=== PATIENT | female | born 1975 | race African-American/Black ===

== ENCOUNTER 2017-01-13 15:48 | Emergency (ER) | payer SELFPAY ==
[~2017-01-13] VITALS: Ht 160 cm; Wt 79.4 kg
[2017-01-13] MEDS ORDERED: LORazepam 1 MG TABLET PO STA (16:08)
[2017-01-13 16:21] LABS: BASO % 0 % (0-3); EOS % 0 % (0-3); HEMATOCRIT 40.4 % (36.0-47.0); HEMOGLOBIN 13.4 g/dL (12.0-15.5); LYMPH # 1.4 x10^3/uL (1.0-4.8); LYMPH % 13 % (24-48); MEAN CORPUSCULAR HEMOGLOBIN 28 pg (25-35); MEAN CORPUSCULAR HGB CONC 33 g/dL (31-37); MEAN CORPUSCULAR VOLUME 83 fL (79-100); MONO % 6 % (0-9); NEUT % 81 % (31-73); PLATELET COUNT 298 x10^3/uL (140-400); RED BLOOD COUNT 4.87 x10^6/uL (3.50-5.40); RED CELL DISTRIBUTION WIDTH 14.4 % (11.5-14.5)
[2017-01-13 16:43] LABS: CALCIUM 9.1 mg/dL (8.5-10.1); CREATININE 1.1 mg/dL (0.6-1.0); GFR 66.2
[2017-01-13 16:48] LABS: ALBUMIN 3.4 g/dL (3.4-5.0); ALBUMIN/GLOBULIN RATIO 0.8 (1.0-1.7); TOTAL BILIRUBIN 0.4 mg/dL (0.2-1.0); TOTAL PROTEIN 7.8 g/dL (6.4-8.2)
[2017-01-13 17:01] LABS: BARBITURATES NEG (NEG); BENZODIAZEPINES NEG (NEG); CANNABINOIDS POS (NEG); COCAINE POS (NEG); METHADONE NEG (NEG); OPIATES NEG (NEG); PHENCYCLIDINE POS (NEG)
--- NOTE | 2017-01-13 17:49 | ED.ADGEN ---
Past Medical History Past Medical History: Anxiety, GERD, Hypertension Past Surgical History: Appendectomy, Tubal ligation Alcohol Use: None Drug Use: None Adult General Chief Complaint Chief Complaint: Neck Pain HPI HPI Patient is a 41 year old -Sud[place] male presents with posterior headache Or, upper neck pain for the past 3 hours. Patient denies history of trauma. States pain radiates from the low neck into her shoulder. Pain is worse with palpation, head movement and rotation. Patient denies chest pain, shortness of breath, blurred vision, dizziness, nausea, vomiting, extremity weakness or loss of sensation. No other symptoms or complaints. Of note, patient is mildly agitated, appears to be excessively anxious or on drugs. No other symptoms or complaints. Review of Systems Review of Systems ROS as per HPI Current Medications Current Medications Current Medications Medications (Trade) Dose Ordered Sig/Leila Start Time Stop Time Status Last Admin Dose Admin Lorazepam (Ativan) 2 mg 1X STAT 01/13/17 16:08 01/13/17 16:10 DC 01/13/17 16:22 2 MG Allergies Allergies Allergies Coded Allergies Type Severity Reaction Last Updated Verified Sulfa (Sulfonamide Antibiotics) Allergy Intermediate Hives 06/16/14 No Physical Exam Physical Exam Constitutional: Well developed, well nourished, anxious, tearful, mildly agitated. HENT: Normocephalic, atraumatic, bilateral external ears normal, oropharynx moist,nose normal. Eyes: PERRL. Neck: Normal range of motion, no midline tenderness, right paravertebral muscle pain, tenderness. Cardiovascular:Heart rate regular rhythm. Lungs & Thorax: Bilateral breath sounds clear to auscultation. Abdomen: Bowel sounds normal, soft, no tenderness, no masses, no pulsatile masses. Skin: Warm, dry, no erythema, no rash. Back: No tenderness, no CVA tenderness. Extremities: No tenderness, no cyanosis, no clubbing, ROM intact, no edema. Neurologic: Alert and oriented X 3, cranial nerves II through XII grossly intact , normal motor function, normal sensory function, no focal deficits noted. Current Patient Data Vital Signs Vital Signs Date Time Temp Pulse Resp B/P (MAP) Pulse Ox O2 Delivery O2 Flow Rate FiO2 01/13/17 19:43 77 118/66 (83) 01/13/17 16:22 97 Room Air 01/13/17 15:50 98.7 20 98.7 Lab Values Laboratory Tests Test 01/13/17 15:55 01/13/17 16:30 White Blood Count 11.0 x10^3/uL (4.0-11.0) Red Blood Count 4.87 x10^6/uL (3.50-5.40) Hemoglobin 13.4 g/dL (12.0-15.5) Hematocrit 40.4 % (36.0-47.0) Mean Corpuscular Volume 83 fL (79-100) Mean Corpuscular Hemoglobin 28 pg (25-35) Mean Corpuscular Hemoglobin Concent 33 g/dL (31-37) Red Cell Distribution Width 14.4 % (11.5-14.5) Platelet Count 298 x10^3/uL (140-400) Neutrophils (%) (Auto) 81 % (31-73) H Lymphocytes (%) (Auto) 13 % (24-48) L Monocytes (%) (Auto) 6 % (0-9) Eosinophils (%) (Auto) 0 % (0-3) Basophils (%) (Auto) 0 % (0-3) Neutrophils # (Auto) 8.9 x10^3uL (1.8-7.7) H Lymphocytes # (Auto) 1.4 x10^3/uL (1.0-4.8) Monocytes # (Auto) 0.7 x10^3/uL (0.0-1.1) Eosinophils # (Auto) 0.0 x10^3/uL (0.0-0.7) Basophils # (Auto) 0.0 x10^3/uL (0.0-0.2) Sodium Level 139 mmol/L (136-145) Potassium Level 4.0 mmol/L (3.5-5.1) Chloride Level 103 mmol/L (98-107) Carbon Dioxide Level 22 mmol/L (21-32) Anion Gap 14 (6-14) Blood Urea Nitrogen 14 mg/dL (7-20) Creatinine 1.1 mg/dL (0.6-1.0) H Estimated GFR (Cockcroft-Gault) 66.2 BUN/Creatinine Ratio 13 (6-20) Glucose Level 79 mg/dL (70-99) Calcium Level 9.1 mg/dL (8.5-10.1) Total Bilirubin 0.4 mg/dL (0.2-1.0) Aspartate Amino Transferase (AST) 15 U/L (15-37) Alanine Aminotransferase (ALT) 19 U/L (14-59) Alkaline Phosphatase 58 U/L (46-116) Troponin I Quantitative < 0.017 ng/mL (0.000-0.055) Total Protein 7.8 g/dL (6.4-8.2) Albumin 3.4 g/dL (3.4-5.0) Albumin/Globulin Ratio 0.8 (1.0-1.7) L Urine Opiates Screen Neg (NEG) Urine Methadone Screen Neg (NEG) Urine Barbiturates Neg (NEG) Urine Phencyclidine Screen Pos (NEG) Urine Amphetamine/Methamphetamine Neg (NEG) Urine Benzodiazepines Screen Neg (NEG) Urine Cocaine Screen Pos (NEG) Urine Cannabinoids Screen Pos (NEG) Urine Ethyl Alcohol Neg (NEG) Laboratory Tests 01/13/17 15:55 Laboratory Tests 01/13/17 15:55 EKG EKG [EKG: Normal sinus rhythm, rate 64, no acute ST-T wave changes, QTC of 433.] Radiology/Procedures Radiology/Procedures [] Course & Med Decision Making Course & Med Decision Making Pertinent Labs and Imaging studies reviewed. (See chart for details) [Headache, neck pain in the setting of cocaine, PCP and cannabis abuse. Patient given anxiety medication with improved symptoms in the ED. No focal neurologic deficits. CT head P. ] Dragon Disclaimer Dragon Disclaimer This electronic medical record was generated, in whole or in part, using a voice recognition dictation system. SOLITARIO KUMAR DO January 13, 2017 17:49
--- NOTE | 2017-01-13 19:27 | RAD ---
PROCEDURE CT head without contrast. HISTORY Headache. TECHNIQUE Noncontrast CT head was obtained. One or more of the following individualized dose reduction techniques were utilized for this exam: 1. Automated exposure control. 2. Adjustment of the mA and/or kV according to patient's size. 3. Use of iterative reconstruction technique. COMPARISON January 04, 2009. FINDINGS The ventricles and sulci are within normal limits for age. There is no acute intracranial hemorrhage or extra-axial fluid collection. There is no mass effect or midline shift. Mcgraw-white differentiation is maintained. Paranasal sinuses are clear. There is no depressed skull fracture. IMPRESSION No acute intracranial findings. Electronically signed by: Mehdi Estevez MD (January 13, 2017 18:57:15)
[2017-01-13 19:43] VITALS: BP 118/66
--- NOTE | 2017-01-14 14:55 | EKG ---
[facility] [address] [place] [address] Test Date: 2017-01-13 Test Time: 16:13:32 Pat Name: YADIEL CEJA Department: Room: Gender: F Surtass Analyst: : 1975 Requested By: SOLITARIO KUMAR Order Number: [id number] Reading MD: Fany Mark Measurements Intervals [place] Rate: 64 P: 40 CT: 150 QRS: -27 QRSD: 74 T: 21 QT: 416 QTc: 433 Interpretive Statements SINUS RHYTHM LEFTWARD AXIS NON SPECIFIC T ABNORMALITY RI6.01 Unconfirmed report No previous ECG available for comparison Electronically Signed On 01-15-2017 21:24:38 CDT by Fany Mark
== END 2017-01-13 20:01 | disposition home or self-care (01) ==
LOC: ER 17:48
DX: R51 Headache (principal); M54.2 Cervicalgia; K21.9 Gastro-esophageal reflux disease without esophagitis; I10 Essential (primary) hypertension; Z90.49 Acquired absence of other specified parts of digestive tract; Z98.51 Tubal ligation status; Z88.2 Allergy status to sulfonamides
CPT/HCPCS: 36415; 70450; 80053; 80305; 80320; 84484; 85027; 93005; G0481; 99285-25

== ENCOUNTER 2017-10-01 11:06 | Emergency (ER) | payer OTHER | END 2017-10-01 12:37 | disposition home or self-care (01) | LOC: ER 11:06 | DX: M51.37 Other intervertebral disc degeneration, lumbosacral region (principal); I10 Essential (primary) hypertension; K21.9 Gastro-esophageal reflux disease without esophagitis; Z98.51 Tubal ligation status; Z90.49 Acquired absence of other specified parts of digestive tract | CPT/HCPCS: 72100; 99284 ==

== ENCOUNTER 2019-10-08 15:04 | Emergency (ER) | payer SELFPAY ==
[~2019-10-08] VITALS: Ht 175.3 cm; Wt 70.0 kg
[~2019-10-08 15:04] MED LIST: CYCL5TAB PO; IBUP-1060 PO
[2019-10-08] MEDS: IPRATRPIUM/ALBUTEROL 0.5/2.5MG 3 ML NEBU. NEB ONE (16:47)
[2019-10-08 16:58] VITALS: BP 113/77
[2019-10-08] MEDS: predniSONE 10 MG TABLET PO ONE (17:04)
[2019-10-08] MEDS: BENZONATATE 100 MG CAPSULE. PO ONE (17:04)
--- NOTE | 2019-10-08 17:15 | RAD ---
PA and lateral chest. HISTORY: Cough PA and lateral views were taken of the chest. There is mild scoliosis. There is hypertrophic change in the spine. There is no effusion. There are no confluent infiltrates. Heart is normal in size. IMPRESSION: 1. No acute chest disease. Electronically signed by: Denton Ryder MD (10/08/2019 5:12 PM) [id number]
[2019-10-08 17:27] LABS: INFLUENZA A PATIENT NEGATIVE (NEGATIVE); INFLUENZA B PATIENT NEGATIVE (NEGATIVE)
[2019-10-08] MEDS ORDERED: PRED50TA PO (17:47)
[2019-10-08] MEDS ORDERED: ALBU2.5V8 IH (17:47)
[2019-10-08] MEDS ORDERED: BENZ100C PO (17:47)
--- NOTE | 2019-10-08 17:47 | PHYS DOC ---
Past Medical History Past Medical History: Anxiety, GERD, Hypertension Past Surgical History: Appendectomy, Tubal ligation Smoking Status: Never Smoker Alcohol Use: None Drug Use: None Adult General Chief Complaint Chief Complaint: COUGH HPI HPI Patient is a 44 year old female with previous history of smoking, current history of hypertension acid reflex and anxiety who presents to ED today complaining of a productive cough, subjective fevers and body aches for 3 days. Review of Systems Review of Systems Constitutional: Reports subjectively fever, body aches and chills [] Eyes: Denies change in visual acuity, redness, or eye pain [] HENT: Denies nasal congestion or sore throat [] Respiratory: Reports a cough, denies shortness of breath [] Cardiovascular: No additional information not addressed in HPI [] GI: Denies abdominal pain, nausea, vomiting, bloody stools or diarrhea [] : Denies dysuria or hematuria [] Musculoskeletal: Denies back pain or joint pain [] Integument: Denies rash or skin lesions [] Neurologic: Denies headache, focal weakness or sensory changes [] All other systems were reviewed and found to be within normal limits, except as documented in this note. Current Medications Current Medications Current Medications Medications (Trade) Dose Ordered Sig/Leila Start Time Stop Time Status Last Admin Dose Admin Albuterol/ Ipratropium (Duoneb) 3 ml 1X ONCE 10/08/19 16:45 10/08/19 16:46 DC 10/08/19 16:47 3 ML Benzonatate (Tessalon Perle) 100 mg 1X ONCE 10/08/19 16:45 10/08/19 16:46 DC 10/08/19 17:04 100 MG Prednisone (Prednisone) 50 mg 1X ONCE 10/08/19 16:45 10/08/19 16:46 DC 10/08/19 17:04 50 MG Allergies Allergies Allergies Coded Allergies Type Severity Reaction Last Updated Verified Sulfa (Sulfonamide Antibiotics) Allergy Intermediate Hives 06/16/14 No Physical Exam Physical Exam Constitutional: Well developed, well nourished, no acute distress, non-toxic appearance. [] HENT: Normocephalic, atraumatic, bilateral external ears normal, oropharynx moist, no oral exudates, nose normal. [] Eyes: PERRLA, EOMI, conjunctiva normal, no discharge. [] Neck: Normal range of motion, no tenderness, supple, no stridor. [] Cardiovascular:Heart rate regular rhythm, no murmur [] Lungs & Thorax: Bilateral breath sounds clear to auscultation [] Abdomen: Bowel sounds normal, soft, no tenderness, no masses, no pulsatile masses. [] Skin: Warm, dry, no erythema, no rash. [] Back: No tenderness, no CVA tenderness. [] Extremities: No tenderness, no cyanosis, no clubbing, ROM intact, no edema. [] Neurologic: Alert and oriented X 3, normal motor function, normal sensory function, no focal deficits noted. [] Psychologic: Affect normal, judgement normal, mood normal. [] Current Patient Data Vital Signs Vital Signs Date Time Temp Pulse Resp B/P (MAP) Pulse Ox O2 Delivery O2 Flow Rate FiO2 10/08/19 16:58 99.4 59 18 113/77 (89) 95 Room Air 99.4 Lab Values Laboratory Tests Test 10/08/19 16:30 Influenza Type A Antigen Negative (NEGATIVE) Influenza Type B Antigen Negative (NEGATIVE) EKG EKG [] Radiology/Procedures Radiology/Procedures []PROCEDURE: CHEST PA & LATERAL PA and lateral chest. HISTORY: Cough PA and lateral views were taken of the chest. There is mild scoliosis. There is hypertrophic change in the spine. There is no effusion. There are no confluent infiltrates. Heart is normal in size. IMPRESSION: 1. No acute chest disease. Electronically signed by: Mikala Donato MD (10/08/2019 5:12 PM) [id number] DICTATED and SIGNED BY: MIKALA DONATO MD DATE: 10/08/19 171 Course & Med Decision Making Course & Med Decision Making Pertinent Labs and Imaging studies reviewed. (See chart for details) This is a 44-year-old female patient presenting to the ED today with cough and bodyaches subjective fevers and chills for 3 days. Chest x-ray is negative, negative influenza A or B. Symptoms are likely viral. Discharged with albuterol inhaler, prednisone and Tessalon Perles. Provided return precautions and discharged in stable condition. Dragon Disclaimer Dragon Disclaimer This electronic medical record was generated, in whole or in part, using a voice recognition dictation system. Departure Departure Impression: Primary Impression: Acute bronchitis Disposition: 01 HOME, SELF-CARE Condition: STABLE Referrals: NO PCP (PCP) Follow up in the course of this week with your own doctor Patient Instructions: Acute Bronchitis, [id number] Additional Instructions: You were evaluated in the emergency room, your chest x-ray is negative, your influenza test is negative. Take the prescribed medications as ordered. Follow- up with your own doctor in 1-2 weeks. Scripts Albuterol Sulfate (Proair Hfa) 8.5 Gm Hfa.aer.ad 2 PUFF IH PRN Q4-6HRS PRN for wheezing for 21 Days, #1 INHALER 0 Refills Prov: GINO HADDAD APRN 10/08/19 Prednisone (PREDNISONE) 50 Mg Tablet 1 TAB PO DAILY, #5 TAB Prov: GINO HADDAD APRN 10/08/19 Benzonatate (TESSALON PERLE) 100 Mg Capsule 1 CAP PO TID, #21 CAP Prov: GINO HADDAD APRN 10/08/19 Problem Qualifiers Primary Impression: Acute bronchitis Bronchitis organism: unspecified organism Qualified Codes: J20.9 - Acute bronchitis, unspecified GINO HADDAD APRN Oct 08, 2019 17:47
== END 2019-10-08 18:05 | disposition home or self-care (01) ==
LOC: ER 15:04
DX: J20.9 Acute bronchitis, unspecified (principal); R50.9 Fever, unspecified; R05 Cough; R52 Pain, unspecified; F41.9 Anxiety disorder, unspecified; K21.9 Gastro-esophageal reflux disease without esophagitis; I10 Essential (primary) hypertension; Z90.49 Acquired absence of other specified parts of digestive tract; Z98.51 Tubal ligation status
CPT/HCPCS: 71046; 87804; 94640; 99284; J7512; J7620

== ENCOUNTER 2021-04-10 09:12 | Emergency (ER) | payer SELFPAY ==
[~2021-04-10] VITALS: Ht 160 cm; Wt 80.9 kg
[~2021-04-10 09:12] MED LIST changes: +ALBU2.5V8 IH; +BENZ100C PO; +PRED50TA PO
[2021-04-10 09:39] VITALS: BP 156/110
--- NOTE | 2021-04-10 10:04 | PHYS DOC ---
Past Medical History Past Medical History: Anxiety, GERD, Hypertension Past Surgical History: Appendectomy, Tubal ligation Smoking Status: Never Smoker Alcohol Use: None Drug Use: None General Adult EDM: Chief Complaint: VAGINAL BLEEDING HPI: HPI: Patient is a 46 year old female with history of appendectomy, anxiety, hypertension, tubal ligation, who presents the ED today complaining of vaginal bleeding, symptoms of been going on for 4 weeks. Patient denies any abdominal pain. Denies any nausea or vomiting. Denies any fever. Reports using 10 feminine pads per day. Review of Systems: Review of Systems: Constitutional: Denies fever or chills. [] Eyes: Denies change in visual acuity. [] HENT: Denies nasal congestion or sore throat. [] Respiratory: Denies cough or shortness of breath. [] Cardiovascular: Denies chest pain or edema. [] GI: Reports vaginal bleeding. Denies abdominal pain, nausea, vomiting, bloody stools or diarrhea. [] : Denies dysuria. [] Musculoskeletal: Denies back pain or joint pain. [] Integument: Denies rash. [] Neurologic: Denies headache, focal weakness or sensory changes. [] Psychiatric: Denies depression or anxiety. [] Heart Score: C/O Chest Pain: N/A Risk Factors: Risk Factors: DM, Current or recent (<one month) smoker, HTN, HLP, family history of CAD, obesity. Risk Scores: Score 0 - 3: 2.5% MACE over next 6 weeks - Discharge Home Score 4 - 6: 20.3% MACE over next 6 weeks - Admit for Clinical Observation Score 7 - 10: 72.7% MACE over next 6 weeks - Early Invasive Strategies Allergies: Allergies: Allergies Coded Allergies Type Severity Reaction Last Updated Verified Sulfa (Sulfonamide Antibiotics) Allergy Intermediate Hives 06/16/14 No Physical Exam: PE: Constitutional: Well developed, well nourished, no acute distress, non-toxic appearance. [] Abdomen: Bowel sounds normal, soft, no tenderness, no masses, no pulsatile masses. [] Pelvic exam-external pelvic is covered with bright red blood. Vaginal vault has mild amount of bright red blood. Some of it was removed, cervix cannot be visualized because more blood keeps getting into the vaginal vault. No CMT, no adnexal tenderness. Skin: Warm, dry, no erythema, no rash. [] Back: No tenderness, no CVA tenderness. [] Extremities: No tenderness, no cyanosis, no clubbing, ROM intact, no edema. [] Neurologic: Alert and oriented X 3, normal motor function, normal sensory function, no focal deficits noted. [] Psychologic: Affect normal, judgement normal, mood normal. [] Current Patient Data: Vital Signs: Vital Signs Date Time Temp Pulse Resp B/P (MAP) Pulse Ox O2 Delivery O2 Flow Rate FiO2 04/10/21 09:39 98.0 59 16 156/110 (89) 96 Room Air 98.0 EKG: EKG: [] Radiology/Procedures: Radiology/Procedures: [] Course & Med Decision Making: Course & Med Decision Making Pertinent Labs and Imaging studies reviewed. (See chart for details) This is a 46-year-old female patient presenting to the ED today with vaginal bleeding for 4 weeks. UA positive for UTI, positive for trichomonas. Patient was given Flagyl in the ED, was also given Rocephin and discharged on doxycycline to cover her for the other possible STDs. CBC with a normal hemoglobin and hematocrit, WBC is normal. CMP with no acute findings. Educated on STDs. Provided OB for follow-up. Discharged in stable condition. [employer] Disclaimer: [employer] Disclaimer: This electronic medical record was generated, in whole or in part, using a voice recognition dictation system. Departure Departure Impression: Primary Impression: Dysfunctional uterine bleeding Additional Impressions: Trichomonas infection UTI (urinary tract infection) Qualified Codes: N39.0 - Urinary tract infection, site not specified Disposition: HOME / SELF CARE / HOMELESS Condition: STABLE Referrals: NO PCP (PCP) CLARK GARCIA MD Patient Instructions: Trichomoniasis, Urinary Tract Infection, Uterine Bleeding, Dysfunctional Additional Instructions: You were evaluated in the emergency room for dysfunctional vaginal bleeding. 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 You also have trichomonas, this is a sexually transmitted disease. Please use protection at all times, contact all your sex partners, let them know were positive for trichomonas and ask them to seek treatment. Please take the prescribed antibiotics for as ordered until completed. Scripts Cephalexin (CEPHALEXIN) 500 Mg Tablet 1 TAB PO BID, #14 TAB Prov: MORGANMELVINAGINO PHOTOGRAPHER [employer] 04/10/21 Doxycycline Hyclate (DOXYCYCLINE HYCLATE) 100 Mg Tablet 1 TAB PO BID, #14 TAB Prov: GINO HADDAD APRN 04/10/21 GINO HADDAD APRN Apr 10, 2021 10:04
[2021-04-10 10:57] LABS: BILIRUBIN,URINE NEGATIVE (NEG); CLARITY,URINE CLEAR; COLOR,URINE YELLOW; NITRITE,URINE NEGATIVE (NEG); PROTEIN,URINE NEGATIVE (NEG-TRACE); UROBILINOGEN,URINE 0.2 mg/dL (0.2 mg/dL)
[2021-04-10 11:23] LABS: BACTERIA,URINE 0 /HPF (0-FEW); RBC,URINE 20-40 /HPF (0-2)
[2021-04-10 11:24] LABS: TRICHOMONAS,URINE PRESENT
[2021-04-10 11:30] LABS: BASO # 0.1 x10^3/uL (0.0-0.2); BASO % 1 % (0-3); EOS # 0.1 x10^3/uL (0.0-0.7); EOS % 2 % (0-3); HEMATOCRIT 41.3 % (36.0-47.0); HEMOGLOBIN 13.6 g/dL (12.0-15.5); LYMPH # 1.5 x10^3/uL (1.0-4.8); LYMPH % 22 % (24-48); MEAN CORPUSCULAR HEMOGLOBIN 29 pg (25-35); MEAN CORPUSCULAR HGB CONC 33 g/dL (31-37); MEAN CORPUSCULAR VOLUME 88 fL (79-100); MONO # 0.5 x10^3/uL (0.0-1.1); MONO % 7 % (0-9); NEUT # 4.5 x10^3/uL (1.8-7.7); NEUT % 68 % (31-73); PLATELET COUNT 252 x10^3/uL (140-400); RED BLOOD COUNT 4.71 x10^6/uL (3.50-5.40); RED CELL DISTRIBUTION WIDTH 15.4 % (11.5-14.5); WHITE BLOOD COUNT 6.7 x10^3/uL (4.0-11.0)
[2021-04-10 11:33] LABS: CALCIUM 8.3 mg/dL (8.5-10.1); GFR 72.2; POTASSIUM 4.2 mmol/L (3.5-5.1)
[2021-04-10 11:36] LABS: ALBUMIN 3.2 g/dL (3.4-5.0); ALBUMIN/GLOBULIN RATIO 0.9 (1.0-1.7); TOTAL BILIRUBIN 0.4 mg/dL (0.2-1.0); TOTAL PROTEIN 6.7 g/dL (6.4-8.2)
[2021-04-10] MEDS ORDERED: DOXYCYCLINE HYCLATE 100 MG TABLET PO ONE (12:00)
[2021-04-10] MEDS ORDERED: metroNIDAZOLE 500 MG TABLET PO ONE (12:00)
[2021-04-10] MEDS ORDERED: cefTRIAXone IM 500 MG VIAL. IM ONE (12:00)
[2021-04-10] MEDS ORDERED: CEPH500T PO (12:32)
[2021-04-10] MEDS ORDERED: DOXY100T PO (12:32)
== END 2021-04-10 12:50 | disposition home or self-care (01) ==
LOC: ER 09:12
DX: N39.0 Urinary tract infection, site not specified (principal); N93.8 Other specified abnormal uterine and vaginal bleeding; A59.9 Trichomoniasis, unspecified; I10 Essential (primary) hypertension; Z90.89 Acquired absence of other organs; Z98.51 Tubal ligation status; Z88.2 Allergy status to sulfonamides; K21.9 Gastro-esophageal reflux disease without esophagitis
CPT/HCPCS: 36415; 80053; 81001; 81025; 85025; 87086; 96372; 99284; J0696